=== PATIENT | male | born 1970 | race Caucasian/White ===

== ENCOUNTER 2019-03-21 15:23 | Outpatient (CLI) | payer OTHER ==
--- NOTE | 2019-03-21 16:24 | MRI ---
MRI Lower Ext Jt Lt WO Con History: M 23.92 internal derangement of left knee Comparison: None Findings: Medial meniscus: Intact. Lateral meniscus: Intact Anterior cruciate ligament and posterior cruciate ligaments are intact. The MCL and LCL are intact. Extensor mechanism: Quadriceps tendon, patella, and patellar tendons are intact. Mild trochlea dysplasia. Cartilage: Patellofemoral compartment: Multifocal 75% and a few full-thickness cartilage fissures of the lateral patellar facet and patellar apex. Medial compartment: There is a 10-15% cartilage thinning of the central articular surface. Lateral compartment: Intact Soft tissues: There is appears be some focal nodular synovitis along the lateral margin of the anteri or cruciate ligament at the intercondylar notch as well as along the medial margin of the posterior cruciate ligament also the intercondylar notch. Bones: No fracture. No malalignment. Small femoral condylar osteophyte formation. Small posterior med ial tibial plateau osteophytes/fuse ossified body. Muscles: Muscle signal and bulk is normal. Impression: 1. No acute internal derangement of the knee. 2. 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 3. Evidence of focal nodular synovitis along the medial margin posterior cruciate ligament and latera l margin cruciate cruciate ligament at the intercondylar notch.
== END 2019-03-21 15:24 | disposition home or self-care (01) ==
LOC: SCSMRI 15:23
PROVIDERS: ATTEND Orthopaedic Surgery
DX: M23.92 Unspecified internal derangement of left knee (principal); M94.262 Chondromalacia, left knee; M65.9 Synovitis and tenosynovitis, unspecified